=== PATIENT | male | born 1980 | race Caucasian/White ===

== ENCOUNTER 2022-10-26 22:22 | Emergency (ER) | payer MEDICAID ==
[~2022-10-26] VITALS: Ht 177.8 cm; Wt 181.8 kg
[2022-10-26 23:16] LABS: BASOPHILS % (AUTO) 0.6 % (0-1); EOSINOPHILS # (AUTO) 0.5 X10'3 (0-0.9); EOSINOPHILS % (AUTO) 6.7 % (0-6); HEMATOCRIT 40.8 % (42.0-52.0); HEMOGLOBIN 13.8 g/dl (14.0-17.9); LYMPHOCYTES # (AUTO) 2.4 X10'3 (1.1-4.8); LYMPHOCYTES % (AUTO) 34.3 % (21-51); MEAN CORPUSCULAR HEMOGLOBIN 29.3 PG (27.0-31.0); MEAN CORPUSCULAR HGB CONC 33.9 g/dL (33.0-36.5); MEAN CORPUSCULAR VOLUME 86.4 FL (78-98); MEAN PLATELET VOLUME 7.4 FL (7.4-10.4); MONOCYTES # (AUTO) 0.8 X10'3 (0-0.9); MONOCYTES % (AUTO) 11.6 % (2-12); NEUTROPHILS # (AUTO) 3.3 X10'3 (1.8-7.7); NEUTROPHILS % (AUTO) 46.8 % (42-75); PLATELET COUNT 323 X10'3 (140-440); RED BLOOD COUNT 4.72 X10'6 (4.70-6.10); RED CELL DISTRIBUTION WIDTH 13.1 % (11.5-14.5); WHITE BLOOD COUNT 7.1 X10'3 (4.5-11.0)
[2022-10-26 23:27] LABS: ALANINE AMINOTRANSFERASE 72 U/L (12-78); ALBUMIN 3.5 G/DL (3.4-5.0); ALBUMIN/GLOBULIN RATIO 0.8 (1.1-1.5); ALKALINE PHOSPHATASE 101 IU/L (46-116); ANION GAP 10 (8-16); ASPARTATE AMINO TRANSFERASE 37 U/L (10-37); BILIRUBIN,TOTAL 0.4 MG/DL (0.1-1.0); BLOOD UREA NITROGEN 18 MG/DL (7-18); BUN/CREATININE RATIO 21.2 (10.0-20.0); CALCIUM 8.6 MG/DL (8.5-10.1); CHLORIDE 103 MMOL/L (99-107); CREATININE 0.85 MG/DL (0.60-1.10); GLUCOSE 124 MG/DL (70-104); POTASSIUM 3.6 MMOL/L (3.5-5.1); SODIUM 140 MMOL/L (135-145); TOTAL CARBON DIOXIDE 27.5 MMOL/L (24-32); TOTAL PROTEIN 7.7 G/DL (6.4-8.2); eGFR > 90 ML/MIN
[2022-10-26 23:57] VITALS: BP 122/80
== END 2022-10-26 23:58 | disposition home or self-care (01) ==
LOC: ER 22:22
DX: R60.0 Localized edema (principal); M79.662 Pain in left lower leg
CPT/HCPCS: 36415; 80053; 85025; 85610; 93971; 99284

== ENCOUNTER 2022-11-07 20:10 | Emergency (ER) | payer MEDICAID ==
[~2022-11-07] VITALS: Ht 177.8 cm; Wt 172.7 kg
[2022-11-07 20:56] VITALS: BP 131/92
[2022-11-07] MEDS ORDERED: ketorolac trometh. 30mg/ml inj. IM ONE (21:50)
[2022-11-07] MEDS ORDERED: IBUP-864 PO (21:51)
== END 2022-11-07 22:27 | disposition home or self-care (01) ==
LOC: ER 20:12
DX: M25.562 Pain in left knee (principal); R22.42 Localized swelling, mass and lump, left lower limb; Z79.899 Other long term (current) drug therapy
CPT/HCPCS: 96372; 99283; J1885

== ENCOUNTER 2023-03-06 09:01 | Emergency (ER) | payer MEDICAID ==
[~2023-03-06] VITALS: Ht 177.8 cm; Wt 178.9 kg
[~2023-03-06 09:01] MED LIST: IBUP-864 PO
[2023-03-06] MEDS ORDERED: amox tr/potassium clavulanate 875/125mg TAB PO ONE (10:25)
--- NOTE | 2023-03-06 10:32 | NUR ---
I have reviewed the assessments performed by CLAUDE Sierra in this chart and concur.
[2023-03-06] MEDS ORDERED: AMOX-580 PO (11:18)
[2023-03-06 12:18] VITALS: BP 112/65; PULSE 86; RESP 22; TEMP 98.2; O2SAT 98
== END 2023-03-06 12:21 | disposition home or self-care (01) ==
LOC: ER 09:01
DX: J18.9 Pneumonia, unspecified organism (principal); Z20.822 Contact with and (suspected) exposure to COVID-19; R11.2 Nausea with vomiting, unspecified; Z79.899 Other long term (current) drug therapy
CPT/HCPCS: 36415; 71045; 87502; 87503; 87811; 99284

== ENCOUNTER 2023-09-06 11:23 | Outpatient (CLI) | payer MEDICAID | END 2023-09-06 23:59 | disposition home or self-care (01) | LOC: RAD 11:23 | PROVIDERS: ATTEND Nurse Practitioner Family | DX: M25.571 Pain in right ankle and joints of right foot (principal); M79.671 Pain in right foot | CPT/HCPCS: 73610; 73630 ==

== ENCOUNTER 2023-09-06 12:01 | Emergency (ER) | payer MEDICAID ==
[~2023-09-06] VITALS: Ht 182.9 cm; Wt 144.0 kg
[2023-09-06 12:07] VITALS: BP 170/109; PULSE 97; RESP 18; TEMP 98.6; O2SAT 98
[2023-09-06] MEDS: buprenorphine/naloxone 8MG-2MG SUBlingual film SL STA (13:54)
== END 2023-09-06 14:07 | disposition home or self-care (01) ==
LOC: ER 12:02
DX: G89.29 Other chronic pain (principal); M25.579 Pain in unspecified ankle and joints of unspecified foot; Z79.1 Long term (current) use of non-steroidal anti-inflammatories (NSAID)
CPT/HCPCS: 99283

== ENCOUNTER 2023-09-08 07:50 | Emergency (ER) | payer MEDICAID ==
[~2023-09-08] VITALS: Ht 177.8 cm; Wt 169.1 kg
[2023-09-08 07:55] VITALS: BP 126/92; PULSE 98; RESP 18; O2SAT 97
[2023-09-08] MEDS: buprenorphine/naloxone 8MG-2MG SUBlingual film SL ONE (09:48)
[2023-09-08 09:51] VITALS: TEMP 97.8
== END 2023-09-08 09:53 | disposition home or self-care (01) ==
LOC: ER 07:51
DX: Z76.0 Encounter for issue of repeat prescription (principal); R52 Pain, unspecified
CPT/HCPCS: 99283